=== PATIENT | female | born 1955 | race Caucasian/White ===

== ENCOUNTER 2018-03-07 15:32 | Emergency (ER) | payer MEDICAID ==
--- NOTE | 2018-03-07 16:36 | EDPHY ---
H & P Stated Complaint: Right 3rd finger cut on glass .1 h waiter/waitress captain Time Seen by Provider: 03/07/18 16:21 HPI/ROS: CHIEF COMPLAINT: Finger laceration HISTORY OF PRESENT ILLNESS: Patient is a 63-year-old female who tried to catch a dc jar as it fell into the sink. It broke and cut her finger. She has a laceration to the distal phalanx of the right middle finger. She has normal movement and sensation surrounding. Normal capillary refill. She denies other injuries. REVIEW OF SYSTEMS: Constitutional: denies: chills, fever, recent illness, recent injury EENTM: denies: blurred vision, double vision, nose congestion Respiratory: denies: cough, shortness of breath Cardiac: denies: chest pain, irregular heart rate, lightheadedness, palpitations Gastrointestinal/Abdominal: denies: abdominal pain, diarrhea, nausea, vomiting, blood streaked stools Genitourinary: denies: dysuria, frequency, hematuria, pain Musculoskeletal: denies: joint pain, muscle pain Skin: See HPI Neurological: denies: headache, numbness, paresthesia, tingling, dizziness, weakness Hematologic/Lymphatic: denies: blood clots, easy bleeding, easy bruising Immunologic/allergic: denies: HIV/AIDS, transplant EXAM: GENERAL: Well-appearing, well-nourished and in no acute distress. HEAD: Atraumatic, normocephalic. EYES: Pupils equal round and reactive to light, extraocular movements intact, sclera anicteric, conjunctiva are normal. ENT: nares patent, oropharynx clear without exudates. Moist mucous membranes. NECK: Normal range of motion, supple without lymphadenopathy or JVD. LUNGS: Breath sounds clear to auscultation bilaterally and equal. No wheezes rales or rhonchi. HEART: Regular rate and rhythm without murmurs, rubs or gallops. ABDOMEN: Soft, nontender, normoactive bowel sounds. No guarding, no rebound. No masses appreciated. BACK: No CVA tenderness, no spinal tenderness, step-offs or deformities EXTREMITIES: Normal range of motion, no pitting or edema. No clubbing or cyanosis. NEUROLOGICAL: Cranial nerves II through XII grossly intact. Normal speech, normal gait. 5/5 strength, normal movement in all extremities, normal sensation PSYCH: Normal mood, normal affect. SKIN: 2.5 cm laceration to fat pad of right middle finger. Distal phalanx. No visible tendon or nerve injury. Normal movement and sensation. Source: Patient Exam Limitations: No limitations - Personal History Current Tetanus Diphtheria and Acellular Pertussis (TDAP): Yes - Medical/Surgical History Hx Asthma: No Hx Chronic Respiratory Disease: No Hx Diabetes: No Hx Cardiac Disease: No Hx Renal Disease: No Other PMH: IBS, DDD, osteoarthritis, hysterectomy, shoulder shoulder, fusion c- spine - Family History Significant Family History: No pertinent family hx - Social History Smoking Status: Never smoked Alcohol Use: None Constitutional: Initial Vital Signs Temperature (C) 37 C 03/07/18 15:38 Heart Rate 63 03/07/18 15:38 Respiratory Rate 16 03/07/18 15:38 Blood Pressure 111/61 03/07/18 15:38 O2 Sat (%) 98 03/07/18 15:38 O2 Delivery Mode Room Air Allergies/Adverse Reactions: Penicillins Allergy (Verified 03/07/18 15:42) Home Medications: Medication Instructions Recorded Acyclovir 03/07/18 Hrt 03/07/18 Medical Decision Making Procedures: Procedure: Laceration repair. Verbal consent was obtained from the patient. The 2.5 cm finger laceration was anesthetized with 0.5% bupivacaine the digital block. The wound was irrigated copiously according to protocol, draped and explored to its base. It was approximately 1/2 cm deep. There were no deep structures involved. No tendon, nerve, or vascular injury was identified when explored through full range of motion. No foreign body was identified. The wound was repaired with 5.0 Prolene, 7 sutures, interrupted. The wound repair was simple without wound margin revisement or multiple flap alignment. The procedure was performed by myself. A dressing was then placed with sterile gauze and bacitracin. ED Course/Re-evaluation: Patient tolerated laceration repair. We discussed suture care and removal in 10 days. I offered x-rays to rule out foreign body but patient declined. Differential Diagnosis: Partial list of the Differential diagnosis considered include but were not limited to; skin laceration and although unlikely based on the history and physical exam, I also considered foreign body, tendon injury, vascular injury, nerve injury, fracture, assault. I discussed these differential diagnoses and the plan with the patient as well as the usual and expected course. The patient understands that the diagnosis is provisional and that in medicine we are not always correct and that further workup is often warranted. Usual and customary warnings were given. All of the patient's questions were answered. The patient was instructed to return to the emergency department should the symptoms at all worsen or return, otherwise to followup with the physician as we discussed. Departure - Departure Disposition: Home, Routine, Self-Care Clinical Impression: Laceration Condition: Fair Instructions: Care For Your Stitches (ED), Laceration (ED) Additional Instructions: Return to have your stitches removed in 10 days Referrals: NONE *PRIMARY CARE P,. [Primary Care Provider] - As per Instructions
[2018-03-07 18:01] VITALS: BP 91/59
== END 2018-03-07 17:45 | disposition home or self-care (01) ==
LOC: CED 15:32
PROC: 0HQGXZZ Repair Left Hand Skin, External Approach (ICD-10-PCS; principal; 2018-03-07)
DX: S61.212A Laceration without foreign body of right middle finger without damage to nail, initial encounter (principal); K58.9 Irritable bowel syndrome, unspecified; M19.90 Unspecified osteoarthritis, unspecified site

== ENCOUNTER → 2018-04-07 | Outpatient (CLI) | payer MEDICAID | LOC: CIMAGING 09:21 | PROVIDERS: ATTEND Internal Medicine | DX: M70.21 Olecranon bursitis, right elbow (principal) | CPT/HCPCS: 73080-PO ==